=== PATIENT | male | born 2005 | race Caucasian/White ===

== ENCOUNTER 2023-10-24 00:15 | Emergency (ER) | payer OTHER ==
[~2023-10-24] VITALS: Ht 175.3 cm; Wt 72.6 kg
[~2023-10-24 00:15] MED LIST: AMOX50SU PO; CEPH125SU PO; PROCODE120 PO; RXCEPH250S PO
[2023-10-24] MEDS ORDERED: ALBU90OI INH (05:18)
[2023-10-24] MEDS ORDERED: PRED20 PO (05:18)
[2023-10-24 05:30] VITALS: BP 113/75
== END 2023-10-24 05:46 | disposition home or self-care (01) ==
LOC: ER 00:15
DX: J20.9 Acute bronchitis, unspecified (principal)
CPT/HCPCS: 71046; 99283-25